=== PATIENT | female | born 1950 | race Caucasian/White ===

== ENCOUNTER 2017-07-01 15:58 | Inpatient (IN) | payer MEDICARE, MEDICAID ==
[2017-07-01] MEDS: IPRATROPIUM 0.5MG/ALBUTEROL 2.5MG INH SOL UD 3ML (DUONEB)(J7620) NEB ×2 (16:52→21:34)
[2017-07-01 17:09] LABS: ABG BASE EXCESS 0.3 (-2.0-2.0); ABG O2 SATURATION 99.5 % (95.0-99.0); ABG PARTIAL PRESSURE CO2 35.5 mmHg (35.0-45.0); ABG PARTIAL PRESSURE O2 266.4 mmHg (75.0-100.0); ABG STANDARD HCO3 24.8 MEQ/L (22.0-26.0); ABG pH (ARTERIAL) 7.447 UNITS (7.350-7.450)
[2017-07-01] MEDS: methylPREDNISolone INJ 125 MG/2 ML VIAL (J2930) IV (17:19)
[2017-07-01 17:21] LABS: BASO # 0.1 10^3/uL (0.0-0.2); BASO % 0.9 % (0.0-1.0); EOS # 0.1 10^3/uL (0.0-0.50); EOS % 1.4 % (0.0-3.0); HEMATOCRIT 37.2 % (36.0-47.0); HEMOGLOBIN 12.6 g/dl (12.0-16.0); IMMATURE GRANULOCYTE % 0.3 % (0-0); LYMPH # 1.5 10^3/uL (1.5-4.5); LYMPH % 22.2 % (24.0-44.0); MEAN CORPUSCULAR HEMOGLOBIN 28.3 pg (27.0-33.0); MEAN CORPUSCULAR HGB CONC 33.9 g/dl (32.0-36.5); MEAN CORPUSCULAR VOLUME 83.4 fl (80.0-96.0); MONO # 1.1 10^3/uL (0.0-0.8); MONO % 15.9 % (0.0-5.0); NEUTROPHILS # 4.1 10^3/uL (1.8-7.7); NEUTROPHILS % 59.3 % (36.0-66.0); PLATELET COUNT, AUTOMATED 264 10^3/uL (150-450); RED BLOOD COUNT 4.46 10^6/uL (4.00-5.40); RED CELL DISTRIBUTION WIDTH 14.4 % (11.5-14.5); WHITE BLOOD COUNT 6.9 10^3/uL (4.0-10.0)
[2017-07-01 17:43] LABS: INR 1.04; PARTIAL THROMBOPLASTIN TIME 32.4 SECONDS (26.8-37.9); PROTHROMBIN TIME 13.7 SECONDS (12.4-14.5)
[2017-07-01 18:00] LABS: ALBUMIN 3.7 GM/DL (3.2-5.2); ALBUMIN/GLOBULIN RATIO 0.95 (1.00-1.93); ALT/SGPT 39 U/L (12-78); ANION GAP 8 MEQ/L (8-16); AST/SGOT 41 U/L (7-37); BILIRUBIN,DIRECT < 0.1 MG/DL (0.0-0.2); BILIRUBIN,TOTAL 0.1 MG/DL (0.2-1.0); BLOOD UREA NITROGEN 15 MG/DL (7-18); CALCIUM LEVEL 8.5 MG/DL (8.8-10.2); CARBON DIOXIDE LEVEL 25 MEQ/L (21-32); CHLORIDE LEVEL 105 MEQ/L (98-107); CPK CREATINE PHOSPHOKINASE 217 U/L (26-192); CREATININE FOR GFR 0.86 MG/DL (0.55-1.02); GLOMERULAR FILTRATION RATE > 60.0 (>45); GLUCOSE, FASTING 147 MG/DL (70-100); LIPASE 125 U/L (73-393); MAGNESIUM LEVEL 2.2 MG/DL (1.8-2.4); POTASSIUM SERUM 4.2 MEQ/L (3.5-5.1); SODIUM LEVEL 138 MEQ/L (136-145); TOTAL PROTEIN 7.6 GM/DL (6.4-8.2); TROPONIN I < 0.02 NG/ML (< 0.10)
[2017-07-01 18:05] LABS: ALKALINE PHOSPHATASE 48 U/L (45-117); CK-MB VALUE MASS 1.3 NG/ML (0.0-3.6); FREE T4 1.36 NG/DL (0.76-1.46); MB/CK RELATIVE INDEX 0.59 (< OR =4); NT-PRO BNP 269 PG/ML (<125)
[2017-07-01] MEDS ORDERED: ISOVUE-370 76% 100ML VIAL (Q9967) As Ordered (18:20)
[2017-07-01] MEDS: ASPIRIN 325 MG TAB PO (18:35)
[2017-07-01] MEDS: HumaLOG INSULIN (NovoLOG) PER UNIT SC (21:00)
[2017-07-01] MEDS ORDERED: ACETAMINOPHEN TAB 650MG DOSE (2X325MG) PO (21:30)
[2017-07-01] MEDS ORDERED: ONDANSETRON 4MG/2ML VIAL (J2405) IV (21:30)
[2017-07-01] MEDS: ACETAMINOPHEN TAB 650MG DOSE (2X325MG) PO (22:01)
[2017-07-01 22:36] LABS: BEDSIDE GLUCOSE 223 MG/DL (80-115)
[2017-07-01 22:45] LABS: CPK CREATINE PHOSPHOKINASE 266 U/L (26-192); MB/CK RELATIVE INDEX 0.37 (< OR =4); TROPONIN I < 0.02 NG/ML (< 0.10)
[2017-07-01] MEDS ORDERED: GLUCOSE 4 GM CHEW TABLET PO (22:45)
[2017-07-01] MEDS ORDERED: GLUCAGON FOR INJ 1 MG VIAL (J1610) SC (22:45)
[2017-07-01] MEDS ORDERED: DEXTROSE 50% 50 ML SYRINGE IV (22:45)
[2017-07-01] MEDS ORDERED: ALBUTEROL 90 MCG/ACT 8GM HFA INHALER INH (23:00)
[2017-07-01] MEDS: RIVAROXABAN 20 MG TAB (XARELTO) PO (23:24)
[2017-07-01] MEDS ORDERED: LEVALBUTEROL 1.25 MG/0.5 ML CONCENTRATE NEB INH (23:30)
[2017-07-01] MEDS: FUROSEMIDE 40 MG/4 ML VIAL (J1940) IV (23:52)
[2017-07-02] MEDS: LEVALBUTEROL 1.25 MG/0.5 ML CONCENTRATE NEB INH ×3 (00:58→20:00)
[2017-07-02] MEDS: methylPREDNISolone INJ 125 MG/2 ML VIAL (J2930) IV ×2 (02:12→10:00)
[2017-07-02] MEDS: LEVOTHYROXINE 150MCG TABLET (0.15MG) PO (06:38)
[2017-07-02 07:20] LABS: BASO % 0.1 % (0.0-1.0); HEMOGLOBIN 12.6 g/dl (12.0-16.0); IMMATURE GRANULOCYTE # 0.1 10^3/uL (0-0); IMMATURE GRANULOCYTE % 0.8 % (0-0); LYMPH # 0.9 10^3/uL (1.5-4.5); LYMPH % 12.9 % (24.0-44.0); MEAN CORPUSCULAR HEMOGLOBIN 27.6 pg (27.0-33.0); MEAN CORPUSCULAR HGB CONC 33.2 g/dl (32.0-36.5); MEAN CORPUSCULAR VOLUME 83.2 fl (80.0-96.0); MONO # 0.1 10^3/uL (0.0-0.8); MONO % 1.4 % (0.0-5.0); NEUTROPHILS # 6.1 10^3/uL (1.8-7.7); NEUTROPHILS % 84.8 % (36.0-66.0); PLATELET COUNT, AUTOMATED 274 10^3/uL (150-450); RED BLOOD COUNT 4.57 10^6/uL (4.00-5.40); RED CELL DISTRIBUTION WIDTH 14.5 % (11.5-14.5); WHITE BLOOD COUNT 7.2 10^3/uL (4.0-10.0)
[2017-07-02 07:39] LABS: ESTIMATED AVERAGE GLUCOSE 146 MG/DL (60-110); HEMOGLOBIN A1c 6.7 %
[2017-07-02 08:00] LABS: ANION GAP 10 MEQ/L (8-16); BLOOD UREA NITROGEN 18 MG/DL (7-18); CALCIUM LEVEL 8.9 MG/DL (8.8-10.2); CARBON DIOXIDE LEVEL 23 MEQ/L (21-32); CHLORIDE LEVEL 104 MEQ/L (98-107); CPK CREATINE PHOSPHOKINASE 174 U/L (26-192); CREATININE FOR GFR 0.87 MG/DL (0.55-1.02); GLOMERULAR FILTRATION RATE > 60.0 (>45); GLUCOSE, FASTING 211 MG/DL (70-100); POTASSIUM SERUM 3.9 MEQ/L (3.5-5.1); SODIUM LEVEL 137 MEQ/L (136-145); TROPONIN I < 0.02 NG/ML (< 0.10)
[2017-07-02 08:01] LABS: MB/CK RELATIVE INDEX 0.57 (< OR =4)
[2017-07-02] MEDS ORDERED: ENOXAPARIN 40 MG/0.4 ML SYRINGE (J1650) SC (09:00)
[2017-07-02] MEDS: OSELTAMIVIR PHOSPHATE 30MG CAPSULE PO ×2 (09:00→20:43)
[2017-07-02] MEDS: SYMBICORT 80/4.5MCG INHALER 6GM INH ×2 (10:03→21:22)
[2017-07-02] MEDS: HumaLOG INSULIN (NovoLOG) PER UNIT SC ×4 (10:23→20:47)
[2017-07-02] MEDS: ALLOPURINOL 100 MG TAB PO (10:24)
[2017-07-02] MEDS: FLUoxetine 20 MG CAP PO (10:24)
[2017-07-02] MEDS: OMEGA-3 1050MG CAPSULE PO ×2 (10:24→20:43)
[2017-07-02] MEDS: FUROSEMIDE 20 MG TAB PO (10:25)
[2017-07-02] MEDS: ASPIRIN 81 MG ENTERIC TAB PO (10:25)
[2017-07-02] MEDS: LOSARTAN 50 MG TAB PO (10:26)
[2017-07-02] MEDS: OMEPRAZOLE 20 MG CAP PO (10:26)
[2017-07-02 12:21] LABS: CK-MB VALUE MASS 1.4 NG/ML (0.0-3.6); CPK CREATINE PHOSPHOKINASE 189 U/L (26-192); MB/CK RELATIVE INDEX 0.74 (< OR =4); TROPONIN I < 0.02 NG/ML (< 0.10)
[2017-07-02 12:48] LABS: BEDSIDE GLUCOSE 172 MG/DL (80-115)
[2017-07-02] MEDS: methylPREDNISolone INJ 40 MG/1 ML VIAL (J2920) IV (13:00)
[2017-07-02 17:53] LABS: BEDSIDE GLUCOSE 171 MG/DL (80-115)
[2017-07-02] MEDS: RIVAROXABAN 20 MG TAB (XARELTO) PO (20:43)
[2017-07-02] MEDS: PRAVASTATIN 20 MG TAB PO (20:43)
[2017-07-02 20:55] LABS: BEDSIDE GLUCOSE 198 MG/DL (80-115)
[2017-07-03] MEDS: methylPREDNISolone INJ 40 MG/1 ML VIAL (J2920) IV (00:20)
[2017-07-03] MEDS: LEVALBUTEROL 1.25 MG/0.5 ML CONCENTRATE NEB INH ×2 (01:46→08:00)
[2017-07-03] MEDS: LEVOTHYROXINE 150MCG TABLET (0.15MG) PO (05:39)
[2017-07-03 05:53] LABS: BASO % 0.1 % (0.0-1.0); HEMATOCRIT 37.9 % (36.0-47.0); HEMOGLOBIN 12.5 g/dl (12.0-16.0); IMMATURE GRANULOCYTE # 0.2 10^3/uL (0-0); IMMATURE GRANULOCYTE % 0.9 % (0-0); LYMPH # 1.3 10^3/uL (1.5-4.5); LYMPH % 7.2 % (24.0-44.0); MEAN CORPUSCULAR HEMOGLOBIN 27.7 pg (27.0-33.0); MEAN CORPUSCULAR VOLUME 83.8 fl (80.0-96.0); MONO # 0.6 10^3/uL (0.0-0.8); MONO % 3.3 % (0.0-5.0); NEUTROPHILS # 16.1 10^3/uL (1.8-7.7); NEUTROPHILS % 88.5 % (36.0-66.0); PLATELET COUNT, AUTOMATED 283 10^3/uL (150-450); RED BLOOD COUNT 4.52 10^6/uL (4.00-5.40); RED CELL DISTRIBUTION WIDTH 14.7 % (11.5-14.5); WHITE BLOOD COUNT 18.2 10^3/uL (4.0-10.0)
[2017-07-03 06:11] LABS: ANION GAP 9 MEQ/L (8-16); BLOOD UREA NITROGEN 24 MG/DL (7-18); CALCIUM LEVEL 8.9 MG/DL (8.8-10.2); CARBON DIOXIDE LEVEL 24 MEQ/L (21-32); CHLORIDE LEVEL 106 MEQ/L (98-107); CREATININE FOR GFR 0.86 MG/DL (0.55-1.02); GLOMERULAR FILTRATION RATE > 60.0 (>45); GLUCOSE, FASTING 204 MG/DL (70-100); POTASSIUM SERUM 4.3 MEQ/L (3.5-5.1); SODIUM LEVEL 139 MEQ/L (136-145)
[2017-07-03] MEDS: ASPIRIN 81 MG ENTERIC TAB PO (08:08)
[2017-07-03] MEDS: OMEGA-3 1050MG CAPSULE PO (08:08)
[2017-07-03] MEDS: FLUoxetine 20 MG CAP PO (08:09)
[2017-07-03] MEDS: FUROSEMIDE 20 MG TAB PO (08:09)
[2017-07-03] MEDS: ALLOPURINOL 100 MG TAB PO (08:09)
[2017-07-03] MEDS: OSELTAMIVIR PHOSPHATE 30MG CAPSULE PO (08:09)
[2017-07-03] MEDS: OMEPRAZOLE 20 MG CAP PO (08:09)
[2017-07-03] MEDS: LOSARTAN 50 MG TAB PO (08:15)
[2017-07-03] MEDS: HumaLOG INSULIN (NovoLOG) PER UNIT SC (08:17)
[2017-07-03] MEDS: SYMBICORT 80/4.5MCG INHALER 6GM INH (08:21)
== END 2017-07-03 11:58 | disposition home or self-care (01) | DRG 194 ==
LOC: M PCU 07-02 17:00 → M ED 15:58 → M ED INP 21:28
DX: J10.1 Influenza due to other identified influenza virus with other respiratory manifestations (principal); Z68.43 Body mass index [BMI] 50.0-59.9, adult; J45.901 Unspecified asthma with (acute) exacerbation; I48.0 Paroxysmal atrial fibrillation; E66.01 Morbid (severe) obesity due to excess calories; I10 Essential (primary) hypertension; E11.9 Type 2 diabetes mellitus without complications; E78.5 Hyperlipidemia, unspecified; G47.33 Obstructive sleep apnea (adult) (pediatric); E03.9 Hypothyroidism, unspecified; K44.9 Diaphragmatic hernia without obstruction or gangrene; Z79.899 Other long term (current) drug therapy; Z88.2 Allergy status to sulfonamides; Z88.8 Allergy status to other drugs, medicaments and biological substances; Z88.5 Allergy status to narcotic agent; Z87.891 Personal history of nicotine dependence

== ENCOUNTER → 2017-09-25 | Outpatient (CLI) | payer MEDICARE ==
[2017-09-25 19:29] LABS: ERYTHROCYTE SEDIMENTATION RATE 23 mm/hr (0-30)
[2017-09-25 19:30] LABS: THYROID PEROXIDASE ANTIBODY 1054.7 U/ML (<60.0)
[2017-09-25 19:31] LABS: THYROGLOBULIN ANTIBODY 44.2 U/ML (<60.0)
[2017-09-25 20:05] LABS: ALBUMIN 3.8 GM/DL (3.2-5.2); ALBUMIN/GLOBULIN RATIO 1.03 (1.00-1.93); ALKALINE PHOSPHATASE 47 U/L (45-117); ALT/SGPT 42 U/L (12-78); ANION GAP 13 MEQ/L (8-16); AST/SGOT 29 U/L (7-37); BILIRUBIN,TOTAL 0.2 MG/DL (0.2-1.0); BLOOD UREA NITROGEN 15 MG/DL (7-18); CALCIUM LEVEL 9.1 MG/DL (8.8-10.2); CARBON DIOXIDE LEVEL 21 MEQ/L (21-32); CHLORIDE LEVEL 108 MEQ/L (98-107); COMPLEMENT C4 27.5 MG/DL (10-40); CREATININE FOR GFR 0.85 MG/DL (0.55-1.30); GLOMERULAR FILTRATION RATE > 60.0 (>45); GLUCOSE, FASTING 106 MG/DL (70-100); RHEUMATOID FACTOR QUANT < 10.0 IU/ML (<15.0); SODIUM LEVEL 142 MEQ/L (136-145); TOTAL PROTEIN 7.5 GM/DL (6.4-8.2)
== END ==
LOC: M SMT 14:23
DX: T78.3XXA Angioneurotic edema, initial encounter (principal); X58.XXXA Exposure to other specified factors, initial encounter; Y92.9 Unspecified place or not applicable
CPT/HCPCS: 80053

== ENCOUNTER → 2019-08-27 | Outpatient (REF) | payer MEDICARE ==
[~2019-08-27] MED LIST: ALBU83IN INH; ALLO10TA PO; ASPI81TA85 PO; ASPI81TAEC PO; BREO1INH3 INH; CALC600T28 PO; CALC600T57 PO; CALCD50TA PO; CART120C PO; DILT1TAB12 PO; DRON40TA PO; DULO1CAP6 PO; FAMO40TA3 PO; FISH1000 PO; FISH100049 PO; FLUO40CA PO; FURO40TA2 PO; HYZA50TA2 PO; LASI20TA3 PO; LEVO150T7 PO; LOSA50TA5 PO; METF500T13 PO; METO1TAB87 PO; MONT10TA4 PO; OMEP1CAP73 PO; OSEL75CA PO; PRAV40TA2 PO; PRED10TA2 PO; PRIL20CA9 PO; PROAAER10 INH; SYMB80INH INH; TRIL45CA2 PO; TYLE1TAB5 PO; XARE20TA PO
== END ==
LOC: M LAB REF 08:00
PROVIDERS: ATTEND Internal Medicine Hematology & Oncology
DX: D47.2 Monoclonal gammopathy (principal)

== ENCOUNTER → 2019-10-14 | Outpatient (CLI) | payer MEDICARE ==
[~2019-10-14] MED LIST changes: +ACET25TA12 PO
--- NOTE | 2019-10-14 12:22 | REP ---
REASON FOR EXAM: Monoclonal gammopathy. There are no priors for comparison. AP and lateral views of the skull show no evidence of a lytic or blastic osseous lesion. AP and lateral views of the cervical spine show marked degenerative changes with hypertrophic degenerative change seen involving the facet and uncovertebral joint at every level bilaterally. In addition, there is disc space narrowing along with anterior and posterior osteophytic ridging at every level. There is a 2 mm anterolisthesis of C3 on C4 which is likely chronic. AP and lateral views of the thoracic spine show syndesmophyte formation along the right side of the thoracic spine from T5-6 to T12-L1 and left-sided syndesmophyte formation seen at T11-12 and T12-L1. The pedicles appear to be intact bilaterally. There is degenerative disc space narrowing at every level. Vertebral body height and alignment is within normal limits. No definite lytic or blastic osseous lesions are noted. AP and lateral views of the lumbar spine show a grade 1 L4 upon L5 spondylolisthesis likely secondary to marked degenerative facet joint changes, which are seen bilaterally at every level and particularly at L4-5 and L5-S1. Vertebral body height is within normal limits. There is posterior disc space narrowing at every level. The pedicles appear to be intact bilaterally. There is no evidence of a lytic or blastic osseous lesion. AP pelvis shows bilateral hip degenerative changes. There is no evidence of a lytic or blastic osseous lesion. Chronic changes are also seen involving the pubic symphysis. AP examination of the femur bilateral: No lytic or blastic osseous lesions. AP examination of the humerus bilateral: No lytic or blastic osseous lesions. IMPRESSION: Advanced chronic changes as described above. No lytic or blastic osseous lesions are seen. Electronically Signed by Joe Casey DO 10/14/2019 01:26 P
== END ==
LOC: M LAB 09:40
PROVIDERS: ATTEND Internal Medicine Hematology & Oncology
DX: D47.2 Monoclonal gammopathy (principal); Z79.01 Long term (current) use of anticoagulants

== ENCOUNTER → 2020-01-11 | Outpatient (CLI) | payer MEDICARE ==
[~2020-01-11] MED LIST changes: -ASPI81TA85 PO; +ASPI81TA86 PO; +BAYE325T12 PO; +EUTH125T PO; +OMEP-218 PO; +OSTE1TAB2 PO; +SM A PO
[2020-02-25 18:27] LABS: ALBUMIN 3.6 GM/DL (3.2-5.2); ALT/SGPT 33 U/L (12-78); BILIRUBIN,TOTAL 0.3 MG/DL (0.2-1.0); BLOOD UREA NITROGEN 13 MG/DL (7-18); CALCIUM LEVEL 9.1 MG/DL (8.8-10.2); CARBON DIOXIDE LEVEL 25 MEQ/L (21-32); CHLORIDE LEVEL 105 MEQ/L (98-107); CREATININE FOR GFR 0.94 MG/DL (0.55-1.30); GLOMERULAR FILTRATION RATE > 60.0 (>39); GLUCOSE, FASTING 138 MG/DL (70-100); IMMUNOGLOBULIN G 1290 MG/DL (681-1648); POTASSIUM SERUM 4.4 MEQ/L (3.5-5.1); SODIUM LEVEL 137 MEQ/L (136-145); TOTAL PROTEIN 7.7 GM/DL (6.4-8.2)
[2020-02-28 13:32] LABS: FREE KAPPA LIGHT CHAINS SERUM SEE SEPARATE REPORT; FREE LAMBDA LIGHT CHAINS SERUM SEE SEPARATE REPORT; KAPPA/LAMBDA RATIO SERUM SEE SEPARATE REPORT
[2020-03-09 11:08] LABS: BASO # 0.1 10^3/uL (0.0-0.2); BASO % 0.9 % (0.0-1.0); EOS # 0.2 10^3/uL (0.0-0.5); EOS % 2.4 % (0.0-3.0); HEMATOCRIT 41.5 % (36.0-47.0); HEMOGLOBIN 13.1 g/dl (12.0-15.5); LYMPH # 3.2 10^3/uL (1.5-5.0); LYMPH % 34.5 % (24.0-44.0); MEAN CORPUSCULAR HEMOGLOBIN 28.4 pg (27.0-33.0); MEAN CORPUSCULAR HGB CONC 31.6 g/dl (32.0-36.5); MONO # 0.8 10^3/uL (0.0-0.8); MONO % 9.2 % (0.0-5.0); NEUTROPHILS # 4.8 10^3/uL (1.5-8.5); NEUTROPHILS % 52.1 % (36.0-66.0); PLATELET COUNT, AUTOMATED 277 10^3/uL (150-450); RED BLOOD COUNT 4.61 10^6/uL (4.00-5.40); WHITE BLOOD COUNT 9.1 10^3/uL (4.0-10.0)
== END ==
LOC: M LAB 10:00
PROVIDERS: ATTEND Internal Medicine Medical Oncology
DX: D47.2 Monoclonal gammopathy (principal)

== ENCOUNTER → 2020-06-26 | Outpatient (CLI) | payer MEDICARE ==
[~2020-06-26] MED LIST changes: +ALL10TAB PO; +MONT10TA10 PO; -MONT10TA4 PO; -SM A PO
--- NOTE | 2020-06-27 14:23 | SLEEPCENT ---
NOCTURNAL POLYSOMNOGRAPHY DATE: 06/26/2020 ORDERED BY: Erin Spencer NP Nocturnal polysomnography was performed for re-titration of pressure therapy in this patient with a history of obstructive sleep apnea syndrome, who remains fatigued and somnolent despite use of CPAP at a pressure of 13 cm. For testing a ResMed AirFit F20 full face mask of medium size was used, 13 cm of water pressure was initially applied to the circuit, and the lights were extinguished. 8 hours and 17 minutes of data were reviewed. There were 142.5 minutes of sleep identified. Sleep latency was prolonged at 82 minutes. The patient did not achieve REM sleep. Sleep architecture was poor with a prolonged period of wake between 1 and 3 a.m. Overall sleep efficiency was therefore reduced at only 29.9%. The patient's electrocardiogram showed a sinus rhythm with an average heart rate of 60 beats per minute. Rate range 56 to 64. Unifocal ventricular and atrial ectopic beats were appreciated. EEG showed some coarsening in background. Some EKG artifact is appreciated. Waveforms for sleep stages were reasonably normal and there were no focal events. Significant respiratory events were not seen on CPAP at a pressure of 13. A brief trial was given at a pressure of 10, the patient did not sleep during this interval. There were a few limb movements noted, but no trains of events. Limb movement arousal index was only 2.1. Oxygen saturations remained reasonably normal throughout the study. IMPRESSION: Obstructive sleep apnea syndrome (G47.33). RECOMMENDATION: Based on the results of this study, a change in CPAP pressure is not recommended. The patient appears to be palliated at a CPAP pressure of 13. Sleep in the lab was less than optimal, however, and other causes for the patient's daytime symptoms may need to be pursued. J. Rounds
== END ==
LOC: M SLEEP 20:00
PROVIDERS: ATTEND Nurse Practitioner Adult Health
DX: G47.33 Obstructive sleep apnea (adult) (pediatric) (principal)

== ENCOUNTER 2021-10-30 13:35 | Emergency (ER) | payer MEDICARE ==
[~2021-10-30] VITALS: Ht 160 cm; Wt 126.6 kg
[~2021-10-30 13:35] MED LIST changes: +ALLO300T2 PO; +ASPI-569 PO; -ASPI81TAEC PO; +BUSP10TA PO; +CALCCAP4 PO; +COVI2.5V IM; +DILT180C28 PO; +DRON400T PO; -DRON40TA PO; +EUTH150T PO; +FAMO20TA PO; +JANU100T PO; +MAGN400T2 PO; +MELA10CA PO; -MONT10TA10 PO; +MONT10TA97 PO; +NAPR220C23 PO; +OMEP-173 PO; -OMEP-218 PO; +RA T500C2 PO; +VALS1TAB66 PO; +VITA100093 PO; +ZYLO300T6 PO
[2021-10-30] MEDS ORDERED: BENZONATATE 100MG CAPSULE PO ONE (19:05)
[2021-10-30 19:57] LABS: BASO # 0.1 10^3/uL (0.0-0.2); BASO % 0.8 % (0.0-1.0); EOS # 0.3 10^3/uL (0.0-0.5); EOS % 2.4 % (0.0-3.0); HEMATOCRIT 36.9 % (36.0-47.0); HEMOGLOBIN 12.1 g/dl (12.0-15.5); LYMPH # 3.5 10^3/uL (1.5-5.0); LYMPH % 31.8 % (24.0-44.0); MEAN CORPUSCULAR HEMOGLOBIN 28.6 pg (27.0-33.0); MEAN CORPUSCULAR HGB CONC 32.8 g/dl (32.0-36.5); MEAN CORPUSCULAR VOLUME 87.2 fl (80.0-96.0); MONO # 0.9 10^3/uL (0.0-0.8); MONO % 7.9 % (2.0-8.0); NEUTROPHILS # 6.1 10^3/uL (1.5-8.5); NEUTROPHILS % 56.3 % (36.0-66.0); PLATELET COUNT, AUTOMATED 282 10^3/uL (150-450); RED BLOOD COUNT 4.23 10^6/uL (4.00-5.40); WHITE BLOOD COUNT 10.9 10^3/uL (4.0-10.0)
[2021-10-30 20:07] LABS: INR 0.99; PROTHROMBIN TIME 13.5 SECONDS (12.7-14.5)
[2021-10-30] MEDS ORDERED: ISOVUE-370 76% 100ML VIAL As Ordered ONE (20:07)
[2021-10-30 20:08] LABS: PARTIAL THROMBOPLASTIN TIME 34.4 SECONDS (25.9-37.0)
[2021-10-30 20:25] LABS: CK-MB VALUE MASS < 1.0 NG/ML (<3.6); CPK CREATINE PHOSPHOKINASE 62 U/L (26-192); MB/CK RELATIVE INDEX 1.61 (< OR =4)
[2021-10-30 22:16] LABS: CK-MB VALUE MASS < 1.0 NG/ML (<3.6); CPK CREATINE PHOSPHOKINASE 66 U/L (26-192); MB/CK RELATIVE INDEX 1.52 (< OR =4)
[2021-10-30] MEDS ORDERED: AMOX875T2 PO (22:34)
[2021-10-30] MEDS ORDERED: BENZ200C70 PO (22:34)
[2021-10-30] MEDS ORDERED: AUGMENTIN 875 MG TAB PO ONE (22:40)
[2021-10-30 22:54] VITALS: BP 174/77
== END 2021-10-30 22:57 | disposition home or self-care (01) ==
LOC: M ED 13:35
DX: J18.9 Pneumonia, unspecified organism (principal); R04.2 Hemoptysis; I48.91 Unspecified atrial fibrillation; E11.9 Type 2 diabetes mellitus without complications; I10 Essential (primary) hypertension; J45.909 Unspecified asthma, uncomplicated; K21.9 Gastro-esophageal reflux disease without esophagitis; E03.9 Hypothyroidism, unspecified; Z98.61 Coronary angioplasty status; Z82.49 Family history of ischemic heart disease and other diseases of the circulatory system; Z79.82 Long term (current) use of aspirin; Z79.84 Long term (current) use of oral hypoglycemic drugs; Z79.899 Other long term (current) drug therapy; Z88.5 Allergy status to narcotic agent; Z88.2 Allergy status to sulfonamides; Z88.8 Allergy status to other drugs, medicaments and biological substances; Z91.89 Other specified personal risk factors, not elsewhere classified
CPT/HCPCS: 71046; 71275; 80047; 82550; 82553; 84484; 85025; 85610; 85730; 87486; 87581; 87633; 87798; 93005; 99284; Q9967